=== PATIENT | female | born 1995 | race Caucasian/White ===

== ENCOUNTER 2020-02-12 16:11 | Outpatient (REF) | payer MEDICAID, SELFPAY ==
[2020-02-12 17:21] LABS: Prothrombin Time 11.7 SEC (10.8-13.0)
[2020-02-12 17:37] LABS: Alanine Aminotransferase 13 U/L (0-31); Albumin Level 4.4 g/dL (3.5-5.0); Alkaline Phosphatase 54 U/L (39-117); Anion Gap 11 (12-20); Aspartate Amino Transferase 19 U/L (5-31); Bilirubin Total 0.4 mg/dL (0.0-1.0); Blood Urea Nitrogen 12 mg/dL (9-16); Calcium 8.8 mg/dL (8.4-10.2); Carbon Dioxide 27 mmol/L (22-29); Chloride 105 mmol/L (96-108); Estimated Glomerular Filt Rate > 60; Glucose Random 89 mg/dL (60-115); Potassium 4.4 mmol/l (3.3-5.1); Sodium 139 mmol/L (135-145); Total Protein 7.2 g/dL (6.5-8.0)
[2020-02-12 17:49] LABS: HCG Quantitative < 2 mIU/mL
[2020-02-15 04:12] LABS: HIV AB/AG Nonreactive (Nonreactive); HIV Num 1 0.11 S/CO (0.00-0.99)
== END 2020-02-12 16:12 | disposition home or self-care (01) ==
LOC: HO.LAB 16:11
PROVIDERS: Absent Provider Internal Medicine; PCP Internal Medicine; Visit Provider Registered Nurse
DX: Z01.818 Encounter for other preprocedural examination (principal); Z71.89 Other specified counseling
CPT/HCPCS: 36415; 80053; 84702; 85610; 87389

== ENCOUNTER → 2020-02-15 14:18 | Outpatient (REF) | payer MEDICAID, SELFPAY ==
--- NOTE | 2020-02-15 14:46 | ECG_ITS ---
Test Reason : Z01.818 PRE OP Blood Pressure : / mmHG Vent. Rate : 067 BPM Atrial Rate : 067 BPM P-R Int : 104 ms QRS Dur : 082 ms QT Int : 380 ms P-R-T Axes : 041 073 048 degrees QTc Int : 401 ms Sinus rhythm with sinus arrhythmia with short KS Otherwise normal ECG No previous ECGs available Referred By: Maxine Khan Electronically Signed By:KAREN CORREA MD
== END ==
LOC: HO.CARD 14:18
PROVIDERS: Absent Provider Internal Medicine; PCP Internal Medicine; Visit Provider Registered Nurse
DX: Z01.810 Encounter for preprocedural cardiovascular examination (principal); Z71.89 Other specified counseling
CPT/HCPCS: 93005